=== PATIENT | female | born 1965 | race Hispanic/Latino ===

== ENCOUNTER → 2017-01-04 | Outpatient (CLI) | payer BC ==
--- NOTE | 2017-01-04 14:48 | MAM ---
History: Well woman exam. Date of exam: 01/04/2017 Services provided: Bilateral full field digital screening mammography. CAD, the images were reviewed with R2 computer aided detection. FINDINGS: Glandular tissue is scattered glandular contour. No prior study is currently available for comparison. No dominant mass, architectural distortion or clustered microcalcification. Presumed right axillary lymph node, only partially demonstrated. IMPRESSION: Benign exam Recommendation: Routine annual mammography BIRAD CATEGORY: 2 BENIGN Electronically signed by: Karime Neville MD 01/04/2017 2:48 PM CDT Workstation: [id number]
== END ==
LOC: MAMMO 14:04
PROVIDERS: ATTEND General Practice
DX: Z12.31 Encounter for screening mammogram for malignant neoplasm of breast (principal)

== ENCOUNTER 2018-06-01 04:20 | Emergency (ER) | payer BC ==
[2018-06-01] MEDS ORDERED: ASPIRIN TABLET 325 MG TAB PO ONE (04:22)
[2018-06-01] MEDS ORDERED: NITROGLYCERIN 0.4 MG 25 EA TAB SL ONE (04:22)
[2018-06-01] MEDS ORDERED: SODIUM CHLORIDE 0.9% (FLUSH) 10 ML SYG IV PRN (04:22)
--- NOTE | 2018-06-01 04:35 | RAD ---
EXAM DESCRIPTION: Single view of the chest CLINICAL HISTORY: chest pain COMPARISON: 11/28/2017 FINDINGS: Single frontal view of the chest. The cardiomediastinal silhouette has normal size and contour. No consolidation, pneumothorax, or pleural effusion. No displaced rib fractures identified. Leads overlie the chest. Upper abdominal soft tissues are unremarkable. IMPRESSION: 1. No acute pulmonary process identified. Electronically signed by: Varun Chinhcilla 06/01/2018 4:34 AM CDT
--- NOTE | 2018-06-01 04:37 | ED.PDOC ---
History of Present Illness - General Source: patient, RN notes reviewed, Vital Signs reviewed Exam Limitations: no limitations Additional Information: 52 YEAR OLD COMPLAINTS OF CHEST PAIN SINCE 1 AM INITIALLY INTERMITTANT NOW CONSTANT LEFT ANTERIOR UPPER CHEST WITH RADIATION TO THE LEFT ARM AND BACK SHE HAS HAD SIMILAR PAIN IN THE PAST EARLIER THIS YEAR WAS SENT TO [facility] SHE HAS NO KNOWN CAD WAS DIAGNOSED WITH HYPERTENSION BUT SHE STOPPED TAKING MEDICATIONS HAS NO RISK FOR DVT OR CAD - History of Present Illness Timing/Duration: 1-3 hours Severity/Quality: moderate Location: substernal Chest Pain Radiation: arms, back Activities at Onset: none <Andree Duran - Last Filed: 06/01/18 04:33> <Hermelindo Mesa - Last Filed: 06/01/18 08:51> - General Chief Complaint: Chest Pain/TN Stated Complaint: chest pain Time Seen by Provider: 06/01/18 04:33 - History of Present Illness Allergies/Adverse Reactions: Allergies Codeine Adverse Reaction (Verified 11/28/17 17:11) Nausea Hydrocodone Adverse Reaction (Verified 06/01/18 04:37) Home Medications: Ambulatory Orders Tramadol HCl [Ultram ER] 100 mg PO Q6HRS #14 tab 02/20/14 Diazepam [Valium] 2 mg PO Q8HRS #30 tab 11/28/17 Meclizine HCl [Antivert] 25 mg PO Q6H #30 tab 11/28/17 Review of Systems - Review of Systems Constitutional: States: no symptoms reported EENTM: States: no symptoms reported Respiratory: States: no symptoms reported Cardiology: States: see HPI Gastrointestinal/Abdominal: States: no symptoms reported Genitourinary: States: no symptoms reported Musculoskeletal: States: no symptoms reported Skin: States: no symptoms reported Neurological: States: no symptoms reported Endocrine: States: no symptoms reported Hematologic/Lymphatic: States: no symptoms reported <Andree Duran - Last Filed: 06/01/18 04:33> Past Medical History (General) - Patient Medical History Hx Cardiac Disorders: Yes Hx Diabetes: No Hx Gastroesophageal Reflux: No - Vaccination History Hx Tetanus, Diphtheria Vaccination: No Hx Influenza Vaccination: No Hx Pneumococcal Vaccination: No - Social History Hx Tobacco Use: No Hx Alcohol Use: No Hx Substance Use: No Hx Substance Use Treatment: No Hx Depression: No <Andree Duran - Last Filed: 06/01/18 04:33> Family Medical History - Family History Mother Family History: Unknown Living Status: Hx Cardiac Disease: Yes Hx Family Diabetes: Yes <Andree Duran - Last Filed: 06/01/18 04:33> Physical Exam - Physical Exam General Appearance: Anxious, Obvious distress Eyes, Ears, Nose, Throat Exam: PERRL/EOMI, normal ENT inspection, TMs normal Neck: non-tender, full range of motion, supple Respiratory: chest non-tender, lungs clear, normal breath sounds, no respiratory distress, no accessory muscle use Cardiovascular/Chest: normal peripheral pulses, regular rate, rhythm, no edema, no gallop, no JVD, no murmur Peripheral Pulses: radial,right: 2+, radial,left: 2+, femoral,right: 2+, femoral ,left: 2+ Gastrointestinal/Abdominal: normal bowel sounds, non tender, soft, no organomegaly, no pulsatile mass Extremity: normal range of motion, non-tender 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 The patient initially received doses of morphine, oxygen, nitrates and aspirin shortly after arrival with resolution of about two thirds of her pain. Initial heart enzymes were negative. Repeat heart enzymes at 3 hours show a troponin rising to 0.16, confirmed by repeat. EKG does not really show new definitive pathology. the patient is receiving a dose of Lovenox and will be placed on a nitroglycerin drip as tolerated by her blood pressures. The patient will be transferred to [facility] for further additional workup. Upon arrival at the emergency room this morning, Dr. Duran was apparently able to obtain records from her previous visits at [facility], as she has been there twice this year already. According to him she had a coronary calcium score that was near 0 and a negative exercise or dobutamine echocardiogram. She has apparently seen Dr. Oakley at one point. she was moderately bradycardic for part of her stay here. This is apparently not a new issue either. Transferring for further cardiac workup. Diagnosis is non-ST elevation myocardial infarction. - Results/Orders Results/Orders: Vital Signs - 24 hr 06/01/18 06/01/18 06/01/18 04:21 05:37 07:00 Temperature 97.1 F L Pulse Rate [ 68 57 L 50 L monitor] Respiratory 20 20 16 Rate Blood Pressure 162/85 140/70 130/73 [Left Arm] O2 Sat by Pulse 99 92 L 97 Oximetry 06/01/18 06/01/18 06/01/18 07:15 08:15 08:17 Temperature Pulse Rate [ 51 L 52 L 75 monitor] Respiratory 16 16 Rate Blood Pressure 115/59 113/65 [Left Arm] O2 Sat by Pulse 95 96 Oximetry Laboratory Tests 06/01/18 06/01/18 06/01/18 04:22 04:50 04:50 WBC 5.8 RBC 5.01 Hgb 13.4 Hct 40.3 MCV 80.5 L MCH 26.7 L MCHC 33.2 RDW 14.2 Plt Count 191 MPV 8.2 Absolute Neuts (auto) 3.10 Absolute Lymphs (auto) 1.90 Absolute Monos (auto) 0.60 Absolute Eos (auto) 0.20 Absolute Basos (auto) 0.00 Neutrophils % 53.5 Lymphocytes % 33.0 Monocytes % 9.9 H Eosinophils % 2.9 Basophils % 0.7 ESR 20 PT 9.5 INR 0.95 PTT (SP) 24.9 D-Dimer, Quantitative 0.47 Sodium 143 Potassium 3.5 L Chloride 106 Carbon Dioxide 29 Anion Gap 11.5 L BUN 18 Creatinine 0.73 BUN/Creatinine Ratio 24.7 H Random Glucose 110 H Serum Osmolality 287.5 Calcium 9.2 Magnesium 2.1 Creatine Kinase 280 H* CK-MB (CK-2) 7.0 H* CK-MB (CK-2) % 2.50 Troponin I < 0.02 B-Natriuretic Peptide 16.9 Amylase Lipase 06/01/18 06/01/18 05:11 07:34 WBC RBC Hgb Hct MCV MCH MCHC RDW Plt Count MPV Absolute Neuts (auto) Absolute Lymphs (auto) Absolute Monos (auto) Absolute Eos (auto) Absolute Basos (auto) Neutrophils % Lymphocytes % Monocytes % Eosinophils % Basophils % ESR PT INR PTT (SP) D-Dimer, Quantitative Sodium Potassium Chloride Carbon Dioxide Anion Gap BUN Creatinine BUN/Creatinine Ratio Random Glucose Serum Osmolality Calcium Magnesium Creatine Kinase 227 H* CK-MB (CK-2) 6.5 H* CK-MB (CK-2) % 2.86 Troponin I 0.16 H* B-Natriuretic Peptide Amylase [address] angiogram of the chest done for further workup of persistent chest pain showed no evidence of any pulmonary embolus. 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 I do not have a previous study to compare this to. No other acute pathology. No evidence of fluid overload. Initial EKG performed at 419 in the morning shows right bundle branch block, Q waves in inferior leads, normal sinus rhythm of 65 bpm. QT interval corrected of 461. No definitive changes when compared with EKG from earlier this year. Repeat EKG at8:15 in the morning shows sinus bradycardia at 47 beats a minute. Persistent right bundle branch block and old Q waves. No definitive ST segment changes or T-wave changes for ischemia. <Hermelindo Mesa - Last Filed: 06/01/18 08:51> Departure <Andree Duran - Last Filed: 06/01/18 04:33> <Hermelindo Mesa - Last Filed: 06/01/18 08:51> - Departure Clinical Impression: NSTEMI (non-ST elevated myocardial infarction) Disposition: Transfer to Hospital Condition: Serious Departure Forms: ED Discharge - Pt. Copy, Patient Portal Self Enrollment Referrals: Jonny Hardin MD [Primary Care Provider] - 1-2 Weeks Home Medications: Ambulatory Orders Tramadol HCl [Ultram ER] 100 mg PO Q6HRS #14 tab 02/20/14 Diazepam [Valium] 2 mg PO Q8HRS #30 tab 11/28/17 Meclizine HCl [Antivert] 25 mg PO Q6H #30 tab 11/28/17 Transfer to Outside Facility - Transfer Information Accepting Provider:: dr cody Accepting Facility: [facility] Reason for Transfer: required specialist not available <Hermelindo Mesa - Last Filed: 06/01/18 08:51>
[2018-06-01] MEDS ORDERED: ONDANSETRON INJ 4 MG/2 ML VIAL IV ONE (04:38)
[2018-06-01] MEDS ORDERED: MORPHINE SULFATE INJ 10 MG/ML VIAL IV ONE (04:38)
[2018-06-01 04:52] VITALS: TEMP 97.1
[2018-06-01] MEDS ORDERED: SUCRALFATE 1 GM/10 ML 1 GM UD PO ONE (05:01)
[2018-06-01] MEDS ORDERED: ALUM & MAG HYDROX-SIMETHICONE 30 ML, LIDOCAINE VISCOUS 2% 15 ML PO ONE ×2 (05:01)
[2018-06-01] MEDS ORDERED: LIDOCAINE HCL 2% (MOUTH-THROAT) 15 ML UD ONE (05:03)
[2018-06-01] MEDS ORDERED: ALUM & MAG HYDROX-SIMETHICONE 30 ML UD ONE (05:03)
--- NOTE | 2018-06-01 06:06 | CT ---
EXAM DESCRIPTION: CTA Chest CLINICAL HISTORY: Pt c/o chest pain despite interventions done COMPARISON: Chest radiograph same day TECHNIQUE: Axial CT images of the chest were acquired after the administration of intravenous contrast. Coronal and sagittal reconstructions were obtained. 3-D postprocessing was acquired at an independent workstation. This exam was performed according to our departmental dose-optimization program which includes use of Automated Exposure Control, adjustment of the mA and/or kV according to patient size and/or use of iterative reconstruction technique. FINDINGS: Neck base: Unremarkable. Mediastinum: Unremarkable. Lymph Nodes: No lymphadenopathy. Heart and pericardium: No right heart strain or pericardial effusion. Aorta: Mildly ectatic descending thoracic aorta measuring 3.1 cm. Otherwise unremarkable. Pulmonary Artery: No evidence of pulmonary embolism. Central Airways: Patent. Pleura: No pneumothorax or pleural effusion. Lungs: No suspicious pulmonary nodules or masses. Upper abdomen: Unremarkable. Bones and soft tissues: No acute osseous or soft tissue abnormalities. IMPRESSION: No evidence of pulmonary embolism. Electronically signed by: Víctor Morales MD 06/01/2018 6:05 AM CDT
[2018-06-01] MEDS ORDERED: diazePAM 2 MG TAB PO ONE (07:04)
[2018-06-01] MEDS ORDERED: NITROGLYCERIN/D5W IV 50,000 MCG in PREMIX BOTTLE 1 BOTTLE IVS SCH (08:30)
[2018-06-01] MEDS ORDERED: NITROGLYCERIN/D5W IV 250 ML IVS ONE (08:54)
[2018-06-01] MEDS ORDERED: ENOXAPARIN SODIUM 100 MG/ML SYG SUBCU ONE (08:55)
[2018-06-01 09:36] VITALS: BP 144/71; O2SAT 96
== END 2018-06-01 09:35 | disposition short-term general hospital (02) ==
LOC: ER 04:20
DX: I21.4 Non-ST elevation (NSTEMI) myocardial infarction (principal); I10 Essential (primary) hypertension; Z88.5 Allergy status to narcotic agent
CPT/HCPCS: 36415; 71045; 71275; 80048; 82150; 82550; 82553; 83690; 83880; 84484; 85025; 85379; 85610; 85651; 85730; 93005; J1650; J2270; J2405

== ENCOUNTER 2018-10-04 09:51 | Emergency (ER) | payer BC ==
[2018-10-04 10:14] VITALS: TEMP 98.1
--- NOTE | 2018-10-04 10:31 | RAD ---
Three-view left knee Indication: fall 3 d ago with pain Comparison: None. Impression: Chondrocalcinosis menisci. Mild narrowing medial knee compartment. No fracture or malalignment. Minimal suprapatellar joint fluid. Mild posterior capsular calcification versus vascular calcifications noted on the lateral view. Electronically signed by: Sergey Redmond MD 10/04/2018 10:28 AM [employer]
--- NOTE | 2018-10-04 10:32 | RAD ---
Two-view left hip. Single frontal view pelvis. Indication: fall 3 d ago with pain Comparison: None. Impression: No acute fracture of the pelvis or left hip identified. Evaluation for fracture is limited given the degree of osteopenia. If high clinical concern for acute fracture, correlation with MRI recommended given its greater sensitivity in the osteopenic patient. If the patient cannot tolerate MRI imaging or more urgent imaging is required, CT could be performed, however it is less sensitive in the osteopenic patient when compared to MRI. Mild to moderate bilateral hip osteoarthritis with joint space narrowing and acetabular roof osteophyte formation. Multiple surgical clips throughout the pelvis. Mild constipation. Electronically signed by: Sergey Redmond MD 10/04/2018 10:29 AM [facility]
[2018-10-04] MEDS ORDERED: KETOROLAC TROMETHAMINE INJ 30 MG/ML VIAL IM ONE (10:40)
--- NOTE | 2018-10-04 10:43 | ED.PDOC ---
History of Present Illness - General Chief Complaint: General Stated Complaint: L hip discomfort Time Seen by Provider: 10/04/18 09:52 Source: patient Exam Limitations: no limitations - History of Present Illness Initial Comments: the patient a 53-year-old female presenting to the emergency room secondary to left knee and hip pain after slipping into a hole while walking 3-4 days ago. She was seeing chiropractor yesterday who felt it was primarily muscle strain. She has continued to have significant pain in these areas so she presents here today. Her primary care doctor is unavailable. She has been ambulating on it for the last 3 days. No significant neurological changes. No palpable deformity. Most of the pain is related to the left hip posteriorly somewhat over the piriformis area. Passive and active range of motion are preserved. No crepitus. No bruising. Pain appears to stop before/below the lumbar spine. Pelvis appears to be stable. Severity: moderate Improving Factors: immobilization Worsening Factors: movement Associated Symptoms: denies symptoms Allergies/Adverse Reactions: Allergies Codeine Adverse Reaction (Verified 11/28/17 17:11) Nausea Hydrocodone Adverse Reaction (Verified 06/01/18 04:37) Home Medications: Ambulatory Orders Amlodipine Besylate 5 mg PO DAILY 10/04/18 Aspirin [[place] Low Dose] 81 mg PO DAILY 10/04/18 Clopidogrel Bisulfate [Plavix] 75 mg PO DAILY 10/04/18 Cyclobenzaprine HCl [Flexeril] 10 mg PO TID PRN #20 tab 10/04/18 Eletriptan Hydrobromide 40 mg PO DAILY 10/04/18 predniSONE [Prednisone] 20 mg PO DAILY #5 tab 10/04/18 Review of Systems - Review of Systems Constitutional: States: no symptoms reported EENTM: States: no symptoms reported Respiratory: States: no symptoms reported Cardiology: States: no symptoms reported Gastrointestinal/Abdominal: States: no symptoms reported Genitourinary: States: no symptoms reported Musculoskeletal: States: see HPI Skin: States: no symptoms reported Neurological: States: anxiety Endocrine: States: no symptoms reported All other Systems: No Change from Baseline Past Medical History (General) - Patient Medical History Hx Seizures: No Hx Stroke: No Hx Dementia: No Hx Asthma: No Hx of COPD: No Hx Cardiac Disorders: Yes Hx Congestive Heart Failure: No Hx Pacemaker: No Hx Hypertension: No Hx Thyroid Disease: No Hx Diabetes: No Hx Gastroesophageal Reflux: No Hx Renal Disease: No Hx Cancer: No Hx of HIV: No Hx Hepatitis C: No Hx MRSA: No - Vaccination History Hx Tetanus, Diphtheria Vaccination: No Hx Influenza Vaccination: No Hx Pneumococcal Vaccination: No - Social History Hx Tobacco Use: No Hx Alcohol Use: No Hx Substance Use: No Hx Substance Use Treatment: No Hx Depression: No Family Medical History - Family History Mother Family History: Unknown Living Status: Hx Cardiac Disease: Yes Hx Family Diabetes: Yes Physical Exam - Physical Exam General Appearance: Alert, Anxious, No apparent distress Eye Exam: bilateral normal Ears, Nose, Throat: hearing grossly normal, normal ENT inspection Neck: full range of motion, supple Respiratory: no respiratory distress, no accessory muscle use Cardiovascular/Chest: normal peripheral pulses, no edema Peripheral Pulses: dorsalis pedis,right: 2+, dorsalis pedis,left: 2+ Rectal Exam: other - pelvis is stable. Tenderness to palpation over the left piriformis muscle. Back Exam: normal inspection, no CVA tenderness, no vertebral tenderness Extremity: normal range of motion - passive and active, no pedal edema, no calf tenderness, normal capillary refill, other - tenderness to palpation over the left hip laterally and posteriorly. No real pain over the femur. Mild diffuse discomfort over the leftknee. Ligaments appear stable. No palpable deformity. 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 X-rays of the pelvis, hip and knee here today show no evidence of any fracture or dislocation. This is most likely a sprain injury of the left hip and knee with possible piriformis strain as well. The patient is to ambulate carefully. Time should heal this injury. The patient will be written for prednisone for 5 days to help reduce inflammation and she will also be written for Flexeril as a muscle relaxer. Topical heat in the form of icy hot or Biofreeze or a pad may prove beneficial. Stretching exercises may also prove beneficial. Keep routine follow up with primary care doctor. ER warnings were given. Departure - Departure Clinical Impression: Sprain of left hip Qualifiers: Encounter type: initial encounter Qualified Code(s): S73.102A - Unspecified sprain of left hip, initial encounter Strain of left knee Qualifiers: Encounter type: initial encounter Qualified Code(s): S86.912A - Strain of unspecified muscle(s) and tendon(s) at lower leg level, left leg, initial encounter Disposition: Discharge to Home or Self Care Condition: Fair Departure Forms: ED Discharge - Pt. Copy, Patient Portal Self Enrollment Instructions: Lower Extremity Muscle Strain (DC) Diet: regular diet Activity: increase activity as tolerated Referrals: Jonny Hardin MD [Primary Care Provider] - 1-2 Weeks Prescriptions: Cyclobenzaprine HCl [Flexeril] 10 mg PO TID PRN #20 tab PRN Reason: Muscle Spasms predniSONE [Prednisone] 20 mg PO DAILY #5 tab Home Medications: Ambulatory Orders Amlodipine Besylate 5 mg PO DAILY 10/04/18 Aspirin [[place] Low Dose] 81 mg PO DAILY 10/04/18 Clopidogrel Bisulfate [Plavix] 75 mg PO DAILY 10/04/18 Cyclobenzaprine HCl [Flexeril] 10 mg PO TID PRN #20 tab 10/04/18 Eletriptan Hydrobromide 40 mg PO DAILY 10/04/18 predniSONE [Prednisone] 20 mg PO DAILY #5 tab 10/04/18 Additional Instructions: the patient is a 53-year-old female presenting to the emergency room secondary to left hip and knee pain after a fall 3 days ago. X-rays of the pelvis, hip and knee here today show no evidence of any fracture or dislocation. This is most likely a sprain injury of the left hip and knee with possible piriformis strain as well. The patient is to ambulate carefully. Time should heal this injury. The patient will be written for prednisone for 5 days to help reduce inflammation and she will also be written for Flexeril as a muscle relaxer. Topical heat in the form of icy hot or Biofreeze or a pad may prove beneficial. Stretching exercises may also prove beneficial. Keep routine follow up with primary care doctor. ER warnings were given.
[2018-10-04 10:55] VITALS: BP 124/72; O2SAT 100
== END 2018-10-04 11:04 | disposition home or self-care (01) ==
LOC: ER 09:51
DX: S73.102A Unspecified sprain of left hip, initial encounter (principal); S86.912A Strain of unspecified muscle(s) and tendon(s) at lower leg level, left leg, initial encounter; I51.9 Heart disease, unspecified; Z79.899 Other long term (current) drug therapy; Z79.82 Long term (current) use of aspirin; Z88.5 Allergy status to narcotic agent; W17.2XXA Fall into hole, initial encounter; Y93.01 Activity, walking, marching and hiking; Y92.9 Unspecified place or not applicable
CPT/HCPCS: 72170; 73502; 73560; J1885